=== PATIENT | female | born 1955 | race Two or more races ===

== ENCOUNTER 2017-07-07 10:30 | Outpatient (CLI) | payer OTHER ==
[~2017-07-07 10:30] MED LIST: CLEOCIN HCL300 MG PO; PROBIOTIC1 EAC4 PO; PROTONIX40 MG PO; ULTRACET PO
== END 2017-07-07 10:39 | disposition home or self-care (01) ==
LOC: MRI 10:30
DX: M54.2 Cervicalgia (principal)
CPT/HCPCS: 72141

== ENCOUNTER 2017-07-07 12:20 | Outpatient (CLI) | payer OTHER | END 2017-07-07 12:22 | disposition home or self-care (01) | LOC: NUCLEAR 12:20 | DX: M81.0 Age-related osteoporosis without current pathological fracture (principal) ==

== ENCOUNTER 2017-10-15 15:36 | Outpatient (CLI) | payer OTHER ==
[~2017-10-15] VITALS: Ht 157.5 cm; Wt 67.6 kg
== END 2017-10-15 16:00 | disposition home or self-care (01) ==
LOC: OFIC 805 15:36
DX: H90.41 Sensorineural hearing loss, unilateral, right ear, with unrestricted hearing on the contralateral side (principal); H93.11 Tinnitus, right ear

== ENCOUNTER 2018-10-22 10:54 | Outpatient (CLI) | payer OTHER | END 2018-10-22 11:04 | disposition home or self-care (01) | LOC: LAB 10:54 | DX: D64.89 Other specified anemias (principal); I10 Essential (primary) hypertension; E11.9 Type 2 diabetes mellitus without complications; E78.00 Pure hypercholesterolemia, unspecified; N39.0 Urinary tract infection, site not specified; E03.8 Other specified hypothyroidism ==

== ENCOUNTER 2018-11-10 09:14 | Outpatient (CLI) | payer OTHER | END 2018-11-10 09:35 | disposition home or self-care (01) | LOC: TOM 09:14 | DX: Z12.31 Encounter for screening mammogram for malignant neoplasm of breast (principal); N63.10 Unspecified lump in the right breast, unspecified quadrant; N63.20 Unspecified lump in the left breast, unspecified quadrant; K57.21 Diverticulitis of large intestine with perforation and abscess with bleeding ==

== ENCOUNTER 2018-11-12 14:22 | Emergency (ER) | payer OTHER ==
[~2018-11-12] VITALS: Ht 165.1 cm; Wt 72.6 kg
== END 2018-11-12 16:19 | disposition home or self-care (01) ==
LOC: ER 14:22
DX: L02.231 Carbuncle of abdominal wall (principal)

== ENCOUNTER 2018-12-09 08:56 | Outpatient (CLI) | payer OTHER | END 2018-12-09 09:02 | disposition home or self-care (01) | LOC: NUCLEAR 08:56 | DX: I49.9 Cardiac arrhythmia, unspecified (principal) ==

== ENCOUNTER 2020-06-27 | Outpatient (CLI) | payer OTHER | END 2020-06-27 11:29 | disposition home or self-care (01) | LOC: PPH VACUNA | PROVIDERS: ATTEND Emergency Medicine Pediatric Emergency Medicine | DX: Z23 Encounter for immunization (principal) ==

== ENCOUNTER → 2020-07-18 | Outpatient (CLI) | payer OTHER | END | disposition home or self-care (01) | LOC: PPH VACUNA | PROVIDERS: ATTEND Emergency Medicine Pediatric Emergency Medicine | DX: Z23 Encounter for immunization (principal) ==

== ENCOUNTER 2020-10-16 11:36 | Outpatient (CLI) | payer OTHER | END 2020-10-16 11:45 | disposition home or self-care (01) | LOC: MAMO-SONO 11:36 | PROVIDERS: ATTEND Internal Medicine | DX: N63.0 Unspecified lump in unspecified breast (principal); Z12.31 Encounter for screening mammogram for malignant neoplasm of breast ==

== ENCOUNTER → 2020-10-16 13:53 | Outpatient (CLI) | payer OTHER | END | disposition home or self-care (01) | LOC: NUCLEAR 13:15 | PROVIDERS: ATTEND Internal Medicine | DX: M81.0 Age-related osteoporosis without current pathological fracture (principal) ==

== ENCOUNTER 2021-11-21 15:01 | Outpatient (CLI) | payer OTHER | END 2021-11-21 15:08 | disposition home or self-care (01) | LOC: RAD 15:01 | PROVIDERS: ATTEND Internal Medicine | DX: M54.17 Radiculopathy, lumbosacral region (principal) ==

== ENCOUNTER 2022-01-01 09:15 | Outpatient (CLI) | payer OTHER | END 2022-01-01 09:23 | disposition home or self-care (01) | LOC: MRI 09:15 | PROVIDERS: ATTEND Internal Medicine | DX: M54.17 Radiculopathy, lumbosacral region (principal) | CPT/HCPCS: 72148 ==

== ENCOUNTER 2022-09-01 12:40 | Outpatient (CLI) | payer OTHER | END 2022-09-01 12:50 | disposition home or self-care (01) | LOC: MAMO-SONO 12:40 | PROVIDERS: ATTEND Internal Medicine | DX: Z12.31 Encounter for screening mammogram for malignant neoplasm of breast (principal); N63.0 Unspecified lump in unspecified breast ==

== ENCOUNTER 2022-09-01 13:37 | Outpatient (CLI) | payer OTHER | END 2022-09-01 13:38 | disposition home or self-care (01) | LOC: NUCLEAR 13:37 | PROVIDERS: ATTEND Internal Medicine | DX: M81.0 Age-related osteoporosis without current pathological fracture (principal) ==

== ENCOUNTER 2024-09-07 14:38 | Outpatient (CLI) | payer OTHER | END 2024-09-07 14:43 | disposition home or self-care (01) | LOC: MAMO-SONO 14:38 | PROVIDERS: ATTEND Internal Medicine | DX: N64.4 Mastodynia (principal); R92.8 Other abnormal and inconclusive findings on diagnostic imaging of breast; Z12.31 Encounter for screening mammogram for malignant neoplasm of breast ==

== ENCOUNTER 2024-09-22 09:32 | Outpatient (CLI) | payer OTHER | END 2024-09-22 09:33 | disposition home or self-care (01) | LOC: NUCLEAR 09:32 | PROVIDERS: ATTEND Internal Medicine | DX: M81.0 Age-related osteoporosis without current pathological fracture (principal) ==

== ENCOUNTER 2024-09-27 13:22 | Outpatient (CLI) | payer OTHER | END 2024-09-27 13:35 | disposition home or self-care (01) | LOC: MRI 13:22 | PROVIDERS: ATTEND Psychiatry & Neurology Clinical Neurophysiology | DX: G31.84 Mild cognitive impairment of uncertain or unknown etiology (principal) | CPT/HCPCS: 70551 ==